=== PATIENT | male | born 1985 | race Caucasian/White ===

== ENCOUNTER → 2023-10-11 07:43 | Outpatient (REF) | payer BC, SELFPAY | LOC: RCS 07:43 | PROVIDERS: ATTENDING PHYSICIAN Internal Medicine Cardiovascular Disease; FAMILY PHYSICIAN Family Medicine | DX: R07.89 Other chest pain (principal); I45.10 Unspecified right bundle-branch block | CPT/HCPCS: 93017; 93306 ==